=== PATIENT | female | born 1980 | race Caucasian/White ===

== ENCOUNTER 2016-11-03 06:00 | Inpatient (IN) | payer BC ==
[2016-11-03] MEDS ORDERED: fentaNYL (PF) 50 MCG/ML 5 ML AMP ONE (06:24)
[2016-11-03] MEDS ORDERED: SODIUM CHLORIDE 0.9% 100 ML BAG ONE (06:24)
[2016-11-03] MEDS ORDERED: BUPIVACAINE (PF) 0.25% 30 ML VIAL ONE (06:24)
[2016-11-03] MEDS ORDERED: LIDOCAINE 1% (PF) 10 MG/ML (30 ML SDV) SQ PRN (06:45)
[2016-11-03] MEDS ORDERED: CARBOPROST TROMETHAMINE 250 MCG/ML 1 ML AMP IM PRN (06:45)
[2016-11-03] MEDS ORDERED: OXYTOCIN 10 UNIT/ML 1 ML VIAL IM PRN (06:45)
[2016-11-03] MEDS ORDERED: TERBUTALINE 1 MG/ML VIAL SQ PRN (06:45)
[2016-11-03] MEDS ORDERED: OXYTOCIN 30 UNITS/500 ML NS 30 UNIT in SALINE 1 500ML.BAG IV SCH (06:45)
[2016-11-03] MEDS ORDERED: METHYLERGONOVINE 0.2 MG/ML 1 ML AMP IM PRN (06:45)
--- NOTE | 2016-11-03 06:52 | P.HPOB ---
History of Present Illness H&P Date: 11/03/16 This is a 36-year-old female 2 para 1001 EDC 11/10/2016 at 39 weeks gestation. Patient presents today for elective induction with favorable multiparous cervix. She has been having uterine contractions spontaneously. Fetus is been active throughout the . She denies vaginal bleeding or fluid leakage. Obstetric history blood type is A+, rubella status immune. VDRL testing, urine culture, group B strep cultures, hepatitis B surface antigen, HIV testing all negative. One-hour Glucola 92. New Social history patient is a nonsmoker, her is a staff member at our hospital, she denies alcohol or drug use. Past medical history is significant for hypothyroidism, infertility, and endometriosis. Past surgical history. Tubal cyst excision, diagnostic laparoscopy, hysterosalpingography, right salpingo-oophorectomy, wisdom teeth extracted. Current medications vitamins daily. ALLERGIES include adhesive tape. Family history is noncontributory. On exam this is a pleasant white female, she is 5 foot 3 inches, 164 pounds, vital signs are stable and she is afebrile, blood pressure 128/82. The general physical exam is within normal limits. The cervix is 4 cm dilated, 80% effaced , -1 station, vertex presentation. Artificial amniorrhexis reveals clear fluid. heart rate is reactive, baseline 140s, frequent accelerations. Uterine contractions are occurring every 4 minutes apart spontaneously. Impression: 39 week intrauterine , advanced maternal age, here for elective induction of labor, all signs reassuring. Plan: Oxytocin per hospital protocol. Close maternal and surveillance. Anticipate normal spontaneous vaginal delivery. Past Medical History Additional Past Medical History / Comment(s): endometriosis History of Any Multi-Drug Resistant Organisms: None Reported Past Surgical History: No Surgical Hx Reported Additional Past Surgical History / Comment(s): (R) oopherectomy Past Anesthesia/Blood Transfusion Reactions: No Reported Reaction Past Psychological History: No Psychological Hx Reported Smoking Status: Never smoker Past Alcohol Use History: None Reported Past Drug Use History: None Reported - Past Family History Mother Family Medical History: No Reported History Medications and Allergies Home Medications Medication Instructions Recorded Confirmed Type Levothyroxine Sodium [Synthroid] 25 mcg PO DAILY 03/02/15 11/03/16 History Pnv with Ca,No.72/Iron/FA 1 tab PO DAILY 11/03/16 11/03/16 History [ Plus Tablet] Allergies Allergy/AdvReac Type Severity Reaction Status Date / Time adhesive tape Allergy Rash/Hives Verified 11/03/16 06:39 Exam - Vital Signs Vital signs: Intake and Output 11/02/16 11/02/16 11/03/16 14:59 22:59 06:59 Other: Weight 74.389 kg Patient Weight 11/03/16 06:59 Weight 74.389 kg
[2016-11-03] MEDS: LACTATED RINGERS 1,000 ML IV SCH ×2 (07:07→08:23)
[2016-11-03 07:26] VITALS: BMI 29.0
[2016-11-03 07:43] LABS: Anisocytosis Moderate; Basophils % (A) 0 %; CHCM 31.9; Eosinophils # (A) 0.2 k/uL (0-0.7); Eosinophils % (A) 2 %; HCT 33.9 % (34.0-46.0); HDW 3.35; HGB 10.9 gm/dL (11.4-16.0); Hypochromasia Slight; Luc # (Auto) 0.25; Luc % (Auto) 3; Lymphocytes # (A) 2.8 k/uL (1.0-4.8); Lymphocytes % (A) 32 %; MCH 24.1 pg (25.0-35.0); MCV 75.2 fL (80.0-100.0); Mean Platelet Volume 8.2; Microcytosis Marked; Monocytes # (A) 0.4 k/uL (0-1.0); Monocytes % (A) 4 %; Neutrophils # (A) 5.2 k/uL (1.3-7.7); Neutrophils % (A) 59 %; RBC 4.52 m/uL (3.80-5.40); RDW 22.7 % (11.5-15.5); WBC 8.8 k/uL (3.8-10.6); WBC (Perox) 9.19
[2016-11-03] MEDS ORDERED: BUPIVACAINE (PF) 0.25% 25 ML, fentaNYL (PF) 200 MCG in SODIUM CHLORIDE 0.9% 71 ML EPIDURAL ONE (08:53)
[2016-11-03] MEDS ORDERED: BENZOCAINE/MENTHOL SPRAY 1 GM/SPRAY AEROSOL TOPICAL PRN (09:46)
[2016-11-03] MEDS ORDERED: LANOLIN CREAM 5 GM TUBE TOPICAL PRN (09:46)
[2016-11-03] MEDS ORDERED: diphenhydrAMINE 50 MG/ML 1 ML VIAL IVP PRN ×2 (09:46)
[2016-11-03] MEDS ORDERED: diphenhydrAMINE 50 MG CAP PO PRN (09:46)
[2016-11-03] MEDS ORDERED: HYDROCORTISONE 2.5% RECTAL CREAM 30 GM TUBE RECTAL PRN (09:46)
[2016-11-03] MEDS ORDERED: ACETAMINOPHEN TAB 325 MG TAB PO PRN (09:46)
[2016-11-03] MEDS ORDERED: Acetaminophen-Codeine 300-30mg TAB PO PRN (09:46)
[2016-11-03] MEDS ORDERED: WITCH HAZEL 1 EACH MED..PAD TOPICAL PRN (09:46)
[2016-11-03] MEDS ORDERED: diphenhydrAMINE ELIXIR 25 MG/10 ML CUP PO PRN (09:46)
[2016-11-03] MEDS ORDERED: ZOLPIDEM 5 MG TAB PO PRN (09:46)
[2016-11-03] MEDS ORDERED: SIMETHICONE 80 MG CHEWABLE PO PRN (09:46)
[2016-11-03] MEDS ORDERED: diphenhydrAMINE 25 MG CAP PO PRN (09:46)
--- NOTE | 2016-11-03 09:46 | P.PROBDLV ---
Vaginal Delivery Note - . Vaginal Delivery Note: This is a 36-year-old female 2 para 1001 EDC 11/10/2016 at 39 weeks gestation. Patient presented this morning for elective induction, noted to be having regular spontaneous uterine contractions. Group B strep cultures were negative, rubella status immune, blood type A positive. Please see my admitting H&P for details. Artificial amniorrhexis revealed clear fluid. Oxytocin was started and titrated per hospital protocol. Patient requested epidural and this was placed without difficulty. She was judged to be completely dilated at 0920 hours. Heart tones were reassuring throughout the first and second stages of labor. Perineal body was prepped and draped in usual sterile fashion. With excellent maternal expulsive efforts the infant's head delivered occiput anterior and she restituted accordingly. There was no nuchal cord noted. The anterior shoulder delivered without issue, the oropharynx nasopharynx and external nares were all bulb suctioned on the perineal body. Patient was officially delivered a liveborn female infant at 0926 hours. The umbilical cord was doubly clamped and ligated, she was handed to waiting nurses for evaluation where scores of 9 and 9 at one and 5 minutes respectively were given. The placenta delivered spontaneously, it was inspected and noted to be intact with trivascular cord at 0928 hours. Uterus was massaged. Inspection of the cervix, vagina, perineum, perirectal areas all revealed negative findings with the exception of a small first-degree perineal laceration noted at 6:00. This was repaired in the usual fashion using a running stitch of 3-0 Vicryl. Fundus is firm and in the midline, symmetric and 18 week size upon completion of delivery. Patient and her are allowed to begin the bonding experience in the LDR. Infant's weight 2760 g or 6 lbs. 1 oz.
[2016-11-03] MEDS: IBUPROFEN 600 MG TAB PO PRN ×2 (13:30→21:37)
[2016-11-03] MEDS: SENNOSIDES-DOCUSATE SODIUM 1 EACH TAB PO SCH (20:21)
[2016-11-03 21:22] VITALS: RESP 16
--- NOTE | 2016-11-04 08:16 | P.DS ---
Providers Date of admission: 11/03/16 06:29 Expected date of discharge: 11/04/16 Attending physician: Val Schuler Primary care physician: Stated None Hospital Course: This is a 36-year-old female 2 para 1001 EDC 11/10/2016 at 39 weeks gestation. Patient presented for induction, but noted to be in early spontaneous labor upon admission. is essentially unremarkable, blood type A+, group B strep cultures negative. Please see my dictated history and physical for details. Artificial amniorrhexis revealed clear fluid. Oxytocin was started and titrated , only minimal doses were needed. Epidural was requested and placed. Patient went on to swiftly deliver a liveborn female with scores of 9 and 9 at one and 5 minutes respectively. There was an estimated blood loss recorded of 250 mL's. A small first-degree midline perineal laceration was easily repaired. weighed 2760 g or 6 lbs. 1 oz. Please see my dictated delivery note for details. This morning the patient and her baby are both doing well. She is voiding, ambulating and passing flatus without difficulty. Vital signs are stable and she is afebrile. Fundus is firm and below the umbilicus, extremities are negative for edema, breasts are not engorged. I have given her prescription for breast pump. Patient is being discharged home in very good condition. She will follow-up with me in the office in 6 weeks. I have reminded her no intercourse tampons or douching. She is contemplating her options for contraception and we will discuss this further in the office. She will use [id number] Advil or Aleve as needed for pain, 2 pills as needed. She will call me with any foul smelling or copious lochia, with the passage of large blood clots, with any pain not alleviated by [id number] products, or indeed with any concerns. Patient Condition at Discharge: Good Plan - Discharge Summary Discharge Medication List Levothyroxine Sodium [Synthroid] 25 mcg PO DAILY 03/02/15 [History] Pnv with Ca,No.72/Iron/FA [ Plus Tablet] 1 tab PO DAILY 11/03/16 [ History] Follow up Appointment(s)/Referral(s): Val Schuler MD [STAFF PHYSICIAN] - 6 Weeks Discharge Disposition: HOME SELF-CARE
[2016-11-04] MEDS: SENNOSIDES-DOCUSATE SODIUM 1 EACH TAB PO SCH (08:45)
[2016-11-04] MEDS: IBUPROFEN 600 MG TAB PO PRN (08:45)
[2016-11-04 08:59] VITALS: BP 126/76; PULSE 72; TEMP 98.3
== END 2016-11-04 14:00 | disposition home or self-care (01) | DRG 775 ==
LOC: 4FBP 06:29
PROVIDERS: ADMIT Obstetrics & Gynecology; ATTEND Obstetrics & Gynecology
PROC: 10E0XZZ Delivery of Products of Conception, External Approach (ICD-10-PCS; principal; 2016-11-03)
PROC: 0HQ9XZZ Repair Perineum Skin, External Approach (ICD-10-PCS; 2016-11-03)
PROC: 3E033VJ Introduction of Other Hormone into Peripheral Vein, Percutaneous Approach (ICD-10-PCS; 2016-11-03)
PROC: 10907ZC Drainage of Amniotic Fluid, Therapeutic from Products of Conception, Via Natural or Artificial Opening (ICD-10-PCS; 2016-11-03)
PROC: 3E0S3NZ Introduction of Analgesics, Hypnotics, Sedatives into Epidural Space, Percutaneous Approach (ICD-10-PCS; 2016-11-03)
DX: O70.0 First degree perineal laceration during delivery (principal); E03.9 Hypothyroidism, unspecified; N80.9 Endometriosis, unspecified; O09.523 Supervision of elderly multigravida, third trimester; O75.89 Other specified complications of labor and delivery; O99.284 Endocrine, nutritional and metabolic diseases complicating childbirth; Z3A.39 39 weeks gestation of pregnancy; Z37.0 Single live birth; Z79.899 Other long term (current) drug therapy; Z91.048 Other nonmedicinal substance allergy status; Z90.721 Acquired absence of ovaries, unilateral; Z87.42 Personal history of other diseases of the female genital tract
CPT/HCPCS: 85025; 88307

== ENCOUNTER 2018-12-23 21:14 | Emergency (ER) | payer BC ==
[2018-12-23 21:51] VITALS: RESP 18; TEMP 97.3
[2018-12-23 22:57] LABS: Appearance,Urine Clear (Clear); Bacteria,Urine Few /hpf; Bilirubin,Urine Negative (Negative); Blood,Urine Negative (Negative); Color,Urine Light Yellow; Glucose,Urine (UA) Negative (Negative); Ketones,Urine Negative (Negative); Leukocyte Esterase,Urine Small (Negative); Mucus,Urine Many /hpf; Nitrite,Urine Negative (Negative); Protein,Urine Negative (Negative); RBC,Urine 1 /hpf (0-5); Specific Gravity,Urine 1.012 (1.001-1.035); Squamous Epithelial Cell,Urine 3 /hpf (0-4); Urobilinogen,Urine <2.0 mg/dL (<2.0)
--- NOTE | 2018-12-23 23:19 | CT ---
EXAM: CT Abdomen and Pelvis Without Intravenous Contrast CLINICAL HISTORY: ITS.REASON CT Reason: Pain TECHNIQUE: Axial computed tomography images of the abdomen and pelvis without intravenous contrast. This CT exam was performed using one or more of the following dose reduction techniques: automated exposure control, adjustment of the mA and/or kV according to patient size, and/or use of iterative reconstruction technique. COMPARISON: No relevant prior studies available. FINDINGS: Lung bases: Unremarkable. No mass. No consolidation. ABDOMEN: Liver: No suspicious mass. Gallbladder and bile ducts: Cholelithiasis. Pancreas: Unremarkable. No ductal dilation. Spleen: Unremarkable. No splenomegaly. Adrenals: 2 cm left adrenal nodule. Kidneys and ureters: No obstructing stones. No hydronephrosis. Stomach and bowel: Moderate stool in the colon. PELVIS: Appendix: No findings to suggest acute appendicitis. Bladder: Unremarkable. No stones. Reproductive: Unremarkable as visualized. ABDOMEN and PELVIS: Intraperitoneal space: Unremarkable. No free air. No significant fluid collection. Bones/joints: No acute fracture. No dislocation. Soft tissues: Unremarkable. Vasculature: No abdominal aortic aneurysm. Lymph nodes: Unremarkable. No enlarged lymph nodes. IMPRESSION: 1. 2 cm left adrenal nodule. 2. Moderate stool in the colon. 3. Cholelithiasis.
[2018-12-23] MEDS ORDERED: KETOROLAC 60 MG/2 ML VIAL IM STA (23:48)
--- NOTE | 2018-12-23 23:51 | ED ---
Back Pain HPI - General Chief Complaint: Back Pain/Injury Stated Complaint: Back pain Time Seen by Provider: 12/23/18 22:01 Source: patient - History of Present Illness Initial Comments: Patient is a 38-year-old female presented to the emergency Department with complaints of left-sided severe back pain 2 days. She is here with her who is a urologist. Patient in a denies any fevers, chills, nausea, vomiting, abdominal pain, urinary symptoms. Patient states the pain is on the left flank area that radiates upwards. Patient denies history of kidney stones. states he gave her muscle relaxers and Aleve which has not helped the pain. No other complaints at this time. - Related Data Home Medications Medication Instructions Recorded Confirmed Levothyroxine Sodium [Synthroid] 25 mcg PO DAILY 03/02/15 11/03/16 Pnv,Calcium 72/Iron/Folic Acid 1 tab PO DAILY 11/03/16 11/03/16 [ Plus Tablet] Previous Rx's Medication Instructions Recorded HYDROcodone/APAP 5-325MG [[facility] [place] 1 tab PO Q4HR PRN 3 Days #10 tab 12/23/18 5-325] Allergies Allergy/AdvReac Type Severity Reaction Status Date / Time adhesive tape Allergy Rash/Hives Verified 12/23/18 21:51 Review of Systems ROS Statement: Those systems with pertinent positive or pertinent negative responses have been documented in the HPI. ROS Other: All systems not noted in ROS Statement are negative. Past Medical History Past Medical History: No Reported History Additional Past Medical History / Comment(s): endometriosis History of Any Multi-Drug Resistant Organisms: None Reported Past Surgical History: No Surgical Hx Reported Additional Past Surgical History / Comment(s): (R) oopherectomy Past Anesthesia/Blood Transfusion Reactions: No Reported Reaction Past Psychological History: No Psychological Hx Reported Smoking Status: Never smoker Past Alcohol Use History: None Reported Past Drug Use History: None Reported - Past Family History Mother Family Medical History: No Reported History General Exam - General Exam Comments Initial Comments: GENERAL: Well-appearing, well-nourished and in no acute distress. HEAD: Atraumatic, normocephalic. EYES: Pupils equal round and reactive to light, extraocular movements intact, sclera anicteric, conjunctiva are normal. ENT: TMs normal, nares patent, oropharynx clear without exudates. Moist mucous membranes. NECK: Normal range of motion, supple without lymphadenopathy or JVD. LUNGS: Breath sounds clear to auscultation bilaterally and equal. No wheezes rales or rhonchi. HEART: Regular rate and rhythm without murmurs, rubs or gallops. ABDOMEN: Soft, nontender, normoactive bowel sounds. No guarding, no rebound. No masses appreciated. Left CVA tenderness. : Deferred EXTREMITIES: Normal range of motion. Tender to palpation along the left paraspinals to the thoracic and cervical area. NEUROLOGICAL: Cranial nerves II through XII grossly intact. Normal speech, normal gait. PSYCH: Normal mood, normal affect. SKIN: Warm, Dry, normal turgor, no rashes or lesions noted. Course Vital Signs 12/23/18 12/24/18 21:49 00:06 Temperature 97.3 F L Pulse Rate 74 80 Respiratory 18 18 Rate Blood Pressure 104/67 136/74 O2 Sat by Pulse 100 100 Oximetry Medical Decision Making - Medical Decision Making Patient is a 38-year-old female presenting with left-sided back pain 2 days. Patient denies associated nausea, vomiting, abdominal pain. Patient states she's had back pain on and off for years now but last 2 days has become worse. Patient denies history of kidney stones or urinary complaints today. Patient denies any trauma to the area. CT abdomen reveals a 2 cm left adrenal nodule and cholelithiasis. No renal stones seen. Patient given Toradol injection for pain relief. Consult to follow up with orthopedics if pain continues. Patient will be discharged home. Case discussed with Dr. Mohr. - Lab Data Lab Results 12/23/18 12/23/18 Range/Units 22:45 22:45 Urine Color Light Yellow Urine Appearance Clear (Clear) Urine pH 6.0 (5.0-8.0) Ur Specific [place] 1.012 (1.001-1.035) Urine Protein Negative (Negative) Urine Glucose (UA) Negative (Negative) Urine Ketones Negative (Negative) Urine Blood Negative (Negative) Urine Nitrite Negative (Negative) Urine Bilirubin Negative (Negative) Urine Urobilinogen <2.0 (<2.0) mg/dL Ur Leukocyte Esterase Small H (Negative) Urine RBC 1 (0-5) /hpf Urine WBC 5 (0-5) /hpf Ur Squamous Epith Cells 3 (0-4) /hpf Urine Bacteria Few H (None) /hpf Urine Mucus Many H (None) /hpf Urine HCG, Qual Not Detected (Not Detectd) Disposition Clinical Impression: Thoracic back pain Disposition: HOME SELF-CARE Condition: Stable Instructions (If sedation given, give patient instructions): Acute Low Back Pain (ED) Additional Instructions: Please return to the Emergency Department if symptoms worsen or any other concerns. Follow up with orthopedics as back pain continues. Prescriptions: HYDROcodone/APAP 5-325MG [[facility] 5-325] 1 tab PO Q4HR PRN 3 Days #10 tab PRN Reason: Pain Is patient prescribed a controlled substance at d/c from ED?: Yes When asked, does pt state using other controlled substances?: No If prescribed controlled substance>3 days was MAPS reviewed?: Prescribed <3 Days If opioid is for acute pain is fill amount 7 days or less?: No If Rx opioid, was Start Talking consent form obtained?: Yes Referrals: None,Stated [Primary Care Provider] - 1-2 days
[2018-12-24 00:08] VITALS: BP 136/74; PULSE 80
== END 2018-12-24 00:09 | disposition home or self-care (01) ==
LOC: EC 21:14
DX: K80.20 Calculus of gallbladder without cholecystitis without obstruction (principal); E27.8 Other specified disorders of adrenal gland; Z79.890 Hormone replacement therapy; Z91.048 Other nonmedicinal substance allergy status
CPT/HCPCS: 81001; 81025; 74176; 99284; 96372; J1885

== ENCOUNTER → 2019-07-07 | Outpatient (CLI) | payer BC ==
[2019-07-07 17:23] LABS: Anisocytosis Moderate; Basophils % (A) 0 %; Eosinophils # (A) 0.1 k/uL (0-0.7); Eosinophils % (A) 2 %; HCT 33.9 % (34.0-46.0); HGB 10.6 gm/dL (11.4-16.0); Hypochromasia Moderate; Lymphocytes # (A) 2.5 k/uL (1.0-4.8); Lymphocytes % (A) 32 %; MCH 22.9 pg (25.0-35.0); MCHC 31.4 g/dL (31.0-37.0); MCV 72.9 fL (80.0-100.0); Mean Platelet Volume 7.8; Microcytosis Marked; Monocytes # (A) 0.4 k/uL (0-1.0); Monocytes % (A) 6 %; Neutrophils # (A) 4.4 k/uL (1.3-7.7); Neutrophils % (A) 58 %; Platelet Count 215 k/uL (150-450); RBC 4.65 m/uL (3.80-5.40); RDW 21.1 % (11.5-15.5); WBC 7.6 k/uL (3.8-10.6)
== END | disposition home or self-care (01) ==
LOC: LABPAT 16:27
PROVIDERS: ATTEND Obstetrics & Gynecology
DX: Z01.812 Encounter for preprocedural laboratory examination (principal); O02.1 Missed abortion
CPT/HCPCS: 85025

== ENCOUNTER 2019-07-10 06:40 | Day surgery (SDC) | payer BC ==
[2019-07-07 12:41] VITALS: BMI 30.3
[~2019-07-10 06:40] MED LIST: DEXAMETHASONE SOD PHOSPHATE 10 MG/ML 1 ML VIAL IV ONE; HYDROmorphone 0.5 MG/0.5 ML SYRINGE IVP PRN; LACTATED RINGERS 1,000 ML IV SCH; LIDOCAINE 1% 20 ML VIAL (10MG/ML) FOR IV START INTRADERMA PRN; ONDANSETRON 4 MG/2 ML VIAL IVP ONE; Pre Op ABX Message 1 EACH MISC MISCELLANE ONE; fentaNYL (PF) 50 MCG/ML 2 ML AMP IV PRN
[2019-07-10] MEDS ORDERED: LIDOCAINE 1% INJ 10MG/ML (20 ML MDV) ONE (07:16)
[2019-07-10] MEDS ORDERED: PROPOFOL 10 MG/ML 20 ML VIAL IV ONE (07:16)
[2019-07-10] MEDS ORDERED: diphenhydrAMINE 50 MG/ML 1 ML VIAL ONE (07:16)
[2019-07-10] MEDS ORDERED: fentaNYL (PF) 50 MCG/ML 2 ML AMP ONE (07:16)
[2019-07-10] MEDS ORDERED: MIDAZOLAM 2 MG/2 ML VIAL ONE (07:16)
[2019-07-10] MEDS ORDERED: KETOROLAC 30 MG/ML 1 ML VIAL ONE (07:16)
[2019-07-10 07:53] VITALS: TEMP 97.5
[2019-07-10 08:02] VITALS: RESP 16
--- NOTE | 2019-07-10 08:05 | P.OP ---
Date of Procedure: 07/10/19 Preoperative Diagnosis: missed Postoperative Diagnosis: same Procedure(s) Performed: suction dilatation and curettage of the uterine cavity Anesthesia: GUERLINE Surgeon: Val Schuler Estimated Blood Loss (ml): 50 IV fluids (ml): 300 Urine output (ml): 25 Pathology: other (intrauterine curettings) Condition: stable Disposition: PACU Operative Findings: negative adnexa bilaterally, cervical os spontaneously open, uterus 4-6 weeks size, anteverted and flexed Description of Procedure: patient is brought to the operating suite where a general anesthetic is administered without difficulty. She's placed in the dorsal lithotomy position. The cervix, vagina, perineal bodies are all prepped and draped in the usual sterile fashion. The appropriate timeout was performed to assure proper patient and procedural identification. Blood type is A+. The bladder is drained for approximately 25 mL of clear yellow urine. Examination under anesthesia reveals an open external os, slightly opened internal os, uterus 4-6 weeks size, anteverted anteflex, negative adnexa bilaterally. Weighted speculum was placed into the vagina. The anterior lip of the cervix is grasped with a Allis clamp. Uterus sounds to a depth of 9 cm in the anteverted position. The largest Hanks dilator freely passes, as the cervix was spontaneously dilated. A #8 curved sterile plastic curette is placed to the dome of the fundus, and under appropriate suction pressures the cavity is curettaged thoroughly. A moderate amount of tissue is sent to pathology for evaluation. A medium sharp curette is used to assure that the cavity is completely evacuated. The suction catheter is once again passed, and no additional blood or tissue is obtained. The Allis clamp was removed. The cervix is clean and dry. Patient is brought back to recovery room in very good condition with stable vital signs including a blood pressure of 102/64, pulse 79, respirations 14, 99% O2 saturation. All sponge needle and enhancement counts are correct at the end of the procedure. Toradol is given prior to leaving the operative suite. Patient will follow-up with me in the office in 2 weeks.
[2019-07-10 08:54] VITALS: BP 114/78; PULSE 74
== END 2019-07-10 09:18 | disposition home or self-care (01) ==
LOC: OR 06:40
PROVIDERS: ATTEND Obstetrics & Gynecology
DX: O02.1 Missed abortion (principal); E03.9 Hypothyroidism, unspecified; Z79.890 Hormone replacement therapy; Z88.2 Allergy status to sulfonamides; Z98.890 Other specified postprocedural states; Z91.048 Other nonmedicinal substance allergy status; Z90.89 Acquired absence of other organs
CPT/HCPCS: 86900; 86901; 88305; 86850; 36415; 59820; J2250; J1200; J1100; J2405; J2001; J3010; J1885; J2704

== ENCOUNTER 2019-09-06 17:07 | Emergency (ER) | payer BC ==
[2019-09-06 17:14] VITALS: BP 124/78; PULSE 82; TEMP 98.1
[2019-09-06] MEDS ORDERED: LIDOCAINE-PRILOCAINE 2.5-2.5% CREAM 5 GM TUBE TOPICAL STA (17:27)
[2019-09-06] MEDS ORDERED: LIDOCAINE 1% INJ 10MG/ML (20 ML MDV) SQ ONE (17:27)
[2019-09-06] MEDS ORDERED: DIPH,PERTUS(ACELL)TETVAC-LF 0.5 ML VIAL IM ONE (17:27)
--- NOTE | 2019-09-06 17:36 | ED ---
Wound/Laceration HPI - General Chief Complaint: Wound/Laceration Stated Complaint: Finger laceration Time Seen by Provider: 09/06/19 17:20 Source: patient Mode of arrival: ambulatory Limitations: no limitations - History of Present Illness Initial Comments: 39-year-old female presenting today for chief complaint of right thumb laceration prior to arrival. She states she was opening a can and struggling when she attempts to open it with a spoon the rest of the way she caught her right thumb. Patient states the bleeding would not stop she is concerned she deviated laceration repair presented to the emergency department for evaluation. Patient unsure of last tetanus denies any limitations in range of motion or strength of the digit. Therefore specs positioning. Remaining review of systems negative patient denies any other areas of injury. - Related Data Home Medications Medication Instructions Recorded Confirmed Levothyroxine Sodium [Synthroid] 50 mcg PO DAILY 03/02/15 07/10/19 Ergocalciferol [Vitamin D2] 50,000 unit PO Q7D 07/07/19 07/10/19 Ferrous Sulfate [Feosol] 325 mg PO TID 07/07/19 07/10/19 Allergies Allergy/AdvReac Type Severity Reaction Status Date / Time adhesive tape Allergy Rash/Hives Verified 09/06/19 17:14 Review of Systems ROS Statement: Those systems with pertinent positive or pertinent negative responses have been documented in the HPI. ROS Other: All systems not noted in ROS Statement are negative. Past Medical History Past Medical History: Thyroid Disorder Additional Past Medical History / Comment(s): anemia currently, miscarriage History of Any Multi-Drug Resistant Organisms: None Reported Past Surgical History: Tonsillectomy Additional Past Surgical History / Comment(s): (R) oopherectomy, D & C Past Anesthesia/Blood Transfusion Reactions: No Reported Reaction Past Psychological History: No Psychological Hx Reported Smoking Status: Never smoker Past Alcohol Use History: None Reported Past Drug Use History: None Reported - Past Family History Mother Family Medical History: No Reported History General Exam - General Exam Comments Initial Comments: General: The patient is awake and alert, in no distress, and does not appear acutely ill. Eye: Pupils are equal, round and reactive to light, extra-ocular movements are intact. No nystagmus. There is normal conjunctiva bilaterally. No signs of icterus. Musculoskeletal: Normal ROM at the MCP DIP and PIP joints as well as the IP joint of the right thumb. Strength intact including IP joint of the right thumb with no limitations in range of motion. Strength 5/5. Sensation intact proximal and distal to injury site. Radial pulses equal bilaterally 2+. Neurological: A&O x 3. CN II-XII intact, There are no obvious motor or sensory deficits. Coordination appears grossly intact. Speech is normal. Skin: Skin is warm and dry and no rashes. 1.2 cm laceration of the right thumb ventral aspect of the thumb pad. Psychiatric: Cooperative, appropriate mood & affect, normal judgment. Limitations: no limitations Course Vital Signs 09/06/19 09/06/19 17:12 18:44 Temperature 98.1 F Pulse Rate 82 Respiratory 18 20 Rate Blood Pressure 124/78 O2 Sat by Pulse 98 Oximetry Procedures - Laceration Laceration #1 Consent Obtained: verbal consent Indication: laceration Site: hand Size (cm): 0 (1.2) Description: linear Depth: simple, single layer Anesthetic Used: lidocaine 1% Anesthesia Technique: local infiltration Amount (mls): 2 Pre-repair: wound explored, irrigated extensively, deep structures intact Type of Sutures: nylon Size of Sutures: 5-0 Number of Sutures: 3 Technique: simple, interrupted Patient Tolerated Procedure: well, no complications Medical Decision Making - Medical Decision Making 39-year-old female who presented for a laceration x just prior to arrival. His thumb was repaired after cleansing with iodine irrigation wound edges approximated well with 3,5.0 sutures. No findings consistent with a tendon injury. Patient wound appears superficial. Discussed signs and symptoms of tendon injury, as well as return parameters importance of follow-up for suture removal patient verbalized understanding and was discharged appearing well. Disposition Clinical Impression: Thumb laceration Disposition: HOME SELF-CARE Condition: Good Instructions (If sedation given, give patient instructions): Care For Your Stitches (ED), Finger Laceration (ED) Additional Instructions: Please use medication as discussed. Please follow-up for suture removal in 7-10 days. Please return to emergency room if the symptoms increase or worsen or for any other concerns. Is patient prescribed a controlled substance at d/c from ED?: No Referrals: Anurag Ortiz MD [Primary Care Provider] - 1-2 days Time of Disposition: 18:31
[2019-09-06] MEDS ORDERED: ACET/COD 300 MG/30 MG STARTER PACK 6 TAB BTL PO STA (18:38)
[2019-09-06 18:45] VITALS: RESP 20
== END 2019-09-06 18:45 | disposition home or self-care (01) ==
LOC: EC 17:07
DX: S61.011A Laceration without foreign body of right thumb without damage to nail, initial encounter (principal); E07.9 Disorder of thyroid, unspecified; D64.9 Anemia, unspecified; Z91.048 Other nonmedicinal substance allergy status; Z79.890 Hormone replacement therapy; Z79.899 Other long term (current) drug therapy; Z23 Encounter for immunization; W26.8XXA Contact with other sharp object(s), not elsewhere classified, initial encounter; Y93.89 Activity, other specified; Y92.009 Unspecified place in unspecified non-institutional (private) residence as the place of occurrence of the external cause
CPT/HCPCS: 90715; 99282; 12001; 90471; J2001

== ENCOUNTER → 2020-06-29 | Outpatient (CLI) | payer BC ==
--- NOTE | 2020-06-29 14:43 | MR ---
EXAMINATION TYPE: MR thoracic spine wo con DATE OF EXAM: 06/29/2020 COMPARISON: None HISTORY: Thoracic spine pain CONTRAST: Performed utilizing 0 mL intravenous gadolinium contrast. TECHNIQUE: Multiplanar, multiecho imaging on a 3.0 Alannah magnet is performed through the thoracic spi ne. Spinal cord maintains normal signal through its visualized course. Vertebral body alignment is normal. Vertebral body heights are preserved. Disc heights are preserved. Disc hydration levels are preserved. No spinal canal stenosis is evident. IMPRESSIONS: 1. Normal MRI thoracic spine.
== END | disposition home or self-care (01) ==
LOC: RADMRIMAIN 13:49
PROVIDERS: ATTEND Psychiatry & Neurology Neurology
DX: M54.6 Pain in thoracic spine (principal)
CPT/HCPCS: 72146

== ENCOUNTER → 2023-09-23 | Outpatient (CLI) | payer BC ==
--- NOTE | 2023-09-26 21:06 | MR ---
EXAMINATION TYPE: MR lumbar spine wo con DATE OF EXAM: 09/23/2023 COMPARISON: None HISTORY: 43-year-old female M54.50, No prior, chronic low back pain with RLE radiculopathy, no injury , no sx, no CA TECHNIQUE: Multiplanar, multisequence images of the lumbar spine were acquired without IV contrast. FINDINGS: Markedly diminished marrow signal suggesting prominent red marrow hyperplasia. Vertebral body heights are preserved and alignment is maintained. No large focal disc herniation or significant spinal canal stenosis. At L4-L5, there is early degenerative disc desiccation and mild disc bulge. There is a small left int raforaminal annular fissure and some edematous Modic type I endplate change towards the left. Changes result in mild left neuroforaminal stenosis. At L5-S1, there is minimal disc bulge with a tiny right paracentral annular fissure. No significant c anal or foraminal stenosis. From T12 through L4 levels, no significant canal or foraminal stenosis. Conus medullaris is normal. Some patchy cord signal artifact projects at the visualized lower thorac ic spine. No prevertebral or paravertebral soft tissue abnormality. IMPRESSION: 1. Mild degenerative disc desiccation at L4-L5 with small amount of edematous Modic type I endplate c hange toward the left. In addition, there is a tiny left intraforaminal annular fissure. Changes cont ribute to only mild left neuroforaminal stenosis here. 2. Minimal bulging disc at L5-S1 with a tiny right paracentral annular fissure. 3. No large focal disc herniation or significant spinal canal stenosis. No other appreciable neurofor aminal narrowing. 4. Prominent red marrow hyperplasia. Correlate to exclude anemia.
== END | disposition home or self-care (01) ==
LOC: RADMRIMAIN 09:04
PROVIDERS: ATTEND Psychiatry & Neurology Neurology
DX: M51.36 Other intervertebral disc degeneration, lumbar region (principal); M99.73 Connective tissue and disc stenosis of intervertebral foramina of lumbar region
CPT/HCPCS: 72148